=== PATIENT | male | born 1935 | race Caucasian/White ===

== ENCOUNTER 2017-07-17 13:18 | Emergency (ER) | payer OTHER ==
[~2017-07-17] VITALS: Ht 172.7 cm; Wt 81.6 kg
[2017-07-17] MEDS ORDERED: SODIUM CHLORIDE 0.9% 1,000 ML IV ONE (13:36)
[2017-07-17 15:07] LABS: Basophils # (auto) 0.1 uL; Basophils % (auto) 0.8 % (0.0-2.0); Eosinophils # (auto) 0.1 uL; Eosinophils % (auto) 1.7 % (0.0-7.0); Hematocrit 45.8 % (41.0-53.0); Hemoglobin 15.4 g/dL (13.5-17.5); Lymphocytes % (auto) 23.5 % (10.0-50.0); Mean Corpuscular Hemoglobin 31.4 pg (28.0-32.0); Mean Corpuscular Hgb Conc. 33.6 g/dL (32.0-36.0); Mean Corpuscular Volume 93.4 fL (80.0-100.0); Monocytes % (auto) 11.8 % (0.0-12.0); Neutrophils # (auto) 5.2 uL; Neutrophils % (auto) 62.2 % (37.0-80.0); Nucleated Red Blood Cells % 0.1 %; Platelet Count (auto) 192 10^3/uL (140-450); Red Cell Distribution Width 12.7 % (11.8-14.3); White Blood Cell 8.4 10^3/uL (4.4-10.8)
[2017-07-17 15:10] LABS: INR 1.15 (0.9-1.15); Partial Thromboplastin Time 40.4 sec (22.64-33.71); Prothrombin Time 12.5 sec (9.37-12.3)
[2017-07-17 15:12] LABS: Albumin 3.4 g/dL (3.4-5.0); BUN/Creatinine Ratio 17.1; Bilirubin, Total 0.3 mg/dL (0.2-1.0); Calcium 8.5 mg/dL (8.5-10.1); Magnesium 2.6 mg/dL (1.6-2.6); Potassium 4.5 mmol/L (3.5-5.1); Total Protein 6.3 g/dL (6.4-8.2)
[2017-07-17] MEDS ORDERED: cloNIDine HCL 0.1 MG TAB PO ONE (19:30)
[2017-07-17 19:58] VITALS: BP 148/58
== END 2017-07-17 18:24 | disposition short-term general hospital (02) ==
LOC: EDBD 13:18 → ER 13:18
DX: R42 Dizziness and giddiness (principal); I49.5 Sick sinus syndrome; I10 Essential (primary) hypertension; E78.5 Hyperlipidemia, unspecified; I25.2 Old myocardial infarction; M19.90 Unspecified osteoarthritis, unspecified site; Z86.73 Personal history of transient ischemic attack (TIA), and cerebral infarction without residual deficits
CPT/HCPCS: 36415; 70450; 71045; 80053; 83735; 84484; 85025; 85610; 85730; 93005; 99291

== ENCOUNTER 2018-08-22 14:36 | Emergency (ER) | payer OTHER ==
[~2018-08-22] VITALS: Ht 177.8 cm; Wt 81.6 kg
[2018-08-22 15:43] LABS: Hemoglobin 14.6 g/dL (13.5-17.5); Mean Corpuscular Hgb Conc. 33.5 g/dL (32.0-36.0)
[2018-08-22 15:56] LABS: Albumin 3.4 g/dL (3.4-5.0); Calcium 8.4 mg/dL (8.5-10.1); Magnesium 2.2 mg/dL (1.6-2.6)
[2018-08-22 15:57] LABS: Basophils # (auto) 0 uL; Basophils % (auto) 0.5 % (0.0-2.0); Eosinophils # (auto) 0.1 uL; Eosinophils % (auto) 1.1 % (0.0-7.0); Hematocrit 43.7 % (41.0-53.0); Lymphocytes # (auto) 1.5 uL; Mean Corpuscular Hemoglobin 32.3 pg (28.0-32.0); Mean Corpuscular Volume 96.3 fL (80.0-100.0); Monocytes # (auto) 0.6 uL; Neutrophils # (auto) 4.5 uL; Neutrophils % (auto) 66.4 % (37.0-80.0); Nucleated Red Blood Cells % 0.1 %; Platelet Count (auto) 181 10^3/uL (140-450); Red Blood Cells 4.54 10^6/uL (4.5-5.90); White Blood Cell 6.7 10^3/uL (4.4-10.8)
[2018-08-22 16:02] LABS: BUN/Creatinine Ratio 21.8; Bilirubin, Total 0.2 mg/dL (0.2-1.0); Total Protein 6.2 g/dL (6.4-8.2)
[2018-08-22 17:30] LABS: INR 1.27 (0.9-1.15); Partial Thromboplastin Time 45.7 sec (23.78-33.04); Prothrombin Time 13.4 sec (9.27-12.13)
[2018-08-22] MEDS ORDERED: cloNIDine HCL 0.1 MG TAB PO ONE (20:45)
[2018-08-22 21:49] VITALS: BP 141/62
== END 2018-08-22 21:57 | disposition short-term general hospital (02) ==
LOC: EDBD 14:36 → ER 14:39
DX: I11.0 Hypertensive heart disease with heart failure (principal); I50.42 Chronic combined systolic (congestive) and diastolic (congestive) heart failure; M19.90 Unspecified osteoarthritis, unspecified site; I25.10 Atherosclerotic heart disease of native coronary artery without angina pectoris; E78.5 Hyperlipidemia, unspecified; I25.2 Old myocardial infarction; F17.290 Nicotine dependence, other tobacco product, uncomplicated; Z88.8 Allergy status to other drugs, medicaments and biological substances; Z98.61 Coronary angioplasty status
CPT/HCPCS: 36415; 71045; 80053; 83735; 83880; 84443; 84484; 85025; 85610; 85730; 93005; 94761; 99291

== ENCOUNTER → 2021-02-18 | Emergency (ER) | payer OTHER ==
[~2021-02-18] VITALS: Ht 175.3 cm; Wt 77.1 kg
[2021-02-18 16:51] VITALS: BP 135/88
[2021-02-18 17:49] LABS: Basophils # (auto) 0.1 10 ^3/uL (0-0.2); Basophils % (auto) 0.6 % (0.0-2.0); Eosinophils # (auto) 0.1 10 ^3/uL (0-0.8); Eosinophils % (auto) 0.7 % (0.0-7.0); Hematocrit 47.2 % (41.0-53.0); Hemoglobin 15.9 g/dL (13.5-17.5); Mean Corpuscular Hemoglobin 31.4 pg (28.0-32.0); Mean Corpuscular Hgb Conc. 33.7 g/dL (32.0-36.0); Mean Corpuscular Volume 93.3 fL (80.0-100.0); Monocytes # (auto) 0.9 10 ^3/uL (0-1.3); Monocytes % (auto) 9.6 % (0.0-12.0); Neutrophils % (auto) 67.1 % (37.0-80.0); Red Blood Cells 5.06 10^6/uL (4.5-5.90); Red Cell Distribution Width 12.8 % (11.8-14.3)
[2021-02-18 18:06] LABS: Albumin 3.7 g/dL (3.4-5.0); BUN/Creatinine Ratio 20.3; Calcium 9.3 mg/dL (8.5-10.1); Potassium 4.5 mmol/L (3.5-5.1)
[2021-02-18 18:10] LABS: INR 1.04 (0.9-1.15)
[2021-02-18 18:15] LABS: Bilirubin, Total 0.3 mg/dL (0.2-1.0); Total Protein 6.8 g/dL (6.4-8.2)
[2021-02-18 18:59] LABS: Magnesium 2.6 mg/dL (1.6-2.6)
== END | disposition left against medical advice (07) ==
LOC: ER 16:46
DX: R42 Dizziness and giddiness (principal); R77.8 Other specified abnormalities of plasma proteins; F17.200 Nicotine dependence, unspecified, uncomplicated; E78.5 Hyperlipidemia, unspecified; I10 Essential (primary) hypertension; I25.2 Old myocardial infarction
CPT/HCPCS: 36415; 70450; 71045; 80053; 83735; 84484; 85025; 85610; 85730; 93005

== ENCOUNTER 2022-02-22 19:03 | Emergency (ER) | payer OTHER ==
[~2022-02-22] VITALS: Ht 177.8 cm; Wt 84.1 kg
[2022-02-22] MEDS ORDERED: hydrALAZINE HCL 20 MG/ML VL IV ONE ×2 (19:30→23:00)
[2022-02-22] MEDS ORDERED: DABI1CAP PO (20:58)
[2022-02-22] MEDS ORDERED: HYDR-4072 PO (20:58)
[2022-02-22] MEDS ORDERED: CEPH500C PO (20:58)
[2022-02-22] MEDS ORDERED: ISOS1TAB28 PO (20:58)
[2022-02-22 21:21] LABS: Basophils # (auto) 0 10 ^3/uL (0-0.2); Basophils % (auto) 0.3 % (0.0-2.0); Eosinophils # (auto) 0.2 10 ^3/uL (0-0.8); Hematocrit 41.5 % (41.0-53.0); Hemoglobin 13.7 g/dL (13.5-17.5); Lymphocytes # (auto) 1.6 10 ^3/uL (0.4-5.4); Lymphocytes % (auto) 24.8 % (10.0-50.0); Mean Corpuscular Hemoglobin 30.5 pg (28.0-32.0); Mean Corpuscular Volume 92.4 fL (80.0-100.0); Monocytes # (auto) 0.7 10 ^3/uL (0-1.3); Monocytes % (auto) 10.4 % (0.0-12.0); Neutrophils % (auto) 61.5 % (37.0-80.0); Nucleated Red Blood Cells % 0.1 %; Red Blood Cells 4.49 10^6/uL (4.5-5.90); Red Cell Distribution Width 12.5 % (11.8-14.3); White Blood Cell 6.5 10^3/uL (4.4-10.8)
[2022-02-22 21:43] LABS: Albumin 3.2 g/dL (3.4-5.0); Calcium 8.9 mg/dL (8.5-10.1); Magnesium 2.5 mg/dL (1.6-2.6); Potassium 4.1 mmol/L (3.5-5.1)
[2022-02-22 21:47] LABS: BUN/Creatinine Ratio 11.6; Bilirubin, Total 0.5 mg/dL (0.2-1.0); Total Protein 6.5 g/dL (6.4-8.2)
[2022-02-22 22:52] LABS: Urine Bacteria NONE SEEN /hpf (None Seen); Urine Blood Negative /uL (Negative); Urine Mucus FEW (None Seen); Urine Specific Gravity 1.017 (1.001-1.035); Urine WBC <1 /hpf (0 - 3)
[2022-02-23 03:58] VITALS: BP 162/98
== END 2022-02-23 03:58 | disposition home or self-care (01) ==
LOC: EDBD 19:03 → ER 19:11
DX: I16.0 Hypertensive urgency (principal); R07.89 Other chest pain; I25.2 Old myocardial infarction; I25.10 Atherosclerotic heart disease of native coronary artery without angina pectoris; E78.5 Hyperlipidemia, unspecified; F17.210 Nicotine dependence, cigarettes, uncomplicated; Z86.73 Personal history of transient ischemic attack (TIA), and cerebral infarction without residual deficits; Z79.899 Other long term (current) drug therapy; Z88.8 Allergy status to other drugs, medicaments and biological substances
CPT/HCPCS: 36415; 70450; 71045; 80053; 81001; 83735; 84484; 85025; 93005; 96374; 96376; 99285; J0360

== ENCOUNTER 2022-07-07 12:41 | Inpatient (IN) | payer OTHER ==
[~2022-07-07] VITALS: Ht 177.8 cm; Wt 83.2 kg
[~2022-07-07 12:41] MED LIST: CEPH500C PO; DABI1CAP PO; HYDR-4072 PO; ISOS1TAB28 PO
[2022-07-07 13:23] LABS: Basophils # (auto) 0.1 10 ^3/uL (0-0.2); Basophils % (auto) 0.7 % (0.0-2.0); Eosinophils # (auto) 0.2 10 ^3/uL (0-0.8); Eosinophils % (auto) 2.1 % (0.0-7.0); Hematocrit 44.6 % (41.0-53.0); Hemoglobin 15.1 g/dL (13.5-17.5); Lymphocytes % (auto) 26.7 % (10.0-50.0); Mean Corpuscular Hemoglobin 31.2 pg (28.0-32.0); Mean Corpuscular Hgb Conc. 33.9 g/dL (32.0-36.0); Monocytes # (auto) 0.6 10 ^3/uL (0-1.3); Monocytes % (auto) 7.2 % (0.0-12.0); Neutrophils # (auto) 4.9 10 ^3/uL (1.6-8.6); Neutrophils % (auto) 63.3 % (37.0-80.0); Nucleated Red Blood Cells % 0.1 %; Red Blood Cells 4.85 10^6/uL (4.5-5.90); Red Cell Distribution Width 12.2 % (11.8-14.3); White Blood Cell 7.7 10^3/uL (4.4-10.8)
[2022-07-07] MEDS ORDERED: LABETALOL HCL 5 MG/ML 4ML SYRINGE IV ONE ×2 (13:30→16:45)
[2022-07-07 14:28] LABS: Chloride 105 mmol/L (98-107); Potassium 4.5 mmol/L (3.5-5.1); Sodium 140 mmol/L (136-145)
[2022-07-07 14:29] LABS: Alanine Aminotransferase 21 U/L (16-61); Alkaline Phosphatase 37 U/L (45-117); Anion Gap 5 (5-15); Aspartate Aminotransferase 22 U/L (15-37); Blood Urea Nitrogen 21 mg/dL (7-18); Calcium 9.1 mg/dL (8.5-10.1); Carbon Dioxide 30 mmol/L (21-32); GFR African American 91 mL/min; GFR Non-African American 75 mL/min; Glucose 98 mg/dL (74-106)
[2022-07-07 14:30] LABS: Bilirubin, Total 0.4 mg/dL (0.2-1.0); Total Protein 6.7 g/dL (6.4-8.2)
[2022-07-07 15:35] LABS: Urine Bacteria NONE SEEN /hpf (None Seen); Urine WBC 1 /hpf (0 - 3)
[2022-07-07 15:41] LABS: Urine Specific Gravity 1.009 (1.001-1.035)
[2022-07-07 15:42] LABS: Urine Blood Negative /uL (Negative)
[2022-07-07] MEDS ORDERED: LORazepam 2MG/ML-1ML VIAL IV PRN ×2 (19:30→20:30)
[2022-07-07 19:44] LABS: INR 1.01 (0.9-1.15)
[2022-07-07 19:49] LABS: Magnesium 2.6 mg/dL (1.6-2.6)
[2022-07-07 21:42] LABS: Alcohol, Urine < 3.0 mg/dL (0-10); Amphetamine Screen, Urine NEGATIVE (NEGATIVE); Barbiturate Scree,Urine NEGATIVE (NEGATIVE); Benzodiazephine Screen, Urine NEGATIVE (NEGATIVE); Cannabinoid Screen, Urine NEGATIVE (NEGATIVE); Cocaine Screen, Urine NEGATIVE (NEGATIVE); Opiate Scree,Urine POSITIVE (NEGATIVE); Phencyclidine Screen, Urine NEGATIVE (NEGATIVE)
[2022-07-07] MEDS: DABIGATRAN 75 MG CAP PO SCH (22:27)
[2022-07-07 22:46] LABS: Cholesterol 156 mg/dL (< 200); HDL Cholesterol 59 mg/dL (40-59); LDL Cholesterol 91 mg/dL (< 100); Triglycerides 90 mg/dL (< 150)
[2022-07-08 00:23] LABS: Folate (Folic Acid) > 24.00 ng/mL (5.38-24)
[2022-07-08] MEDS: HYDROcodone-ACET 10/325MG TAB PO PRN ×2 (01:25→22:23)
[2022-07-08] MEDS: cloNIDine HCL 0.1 MG TAB PO SCH ×3 (07:45→22:23)
[2022-07-08] MEDS: ISOSORBIDE MONONITRATE ER 60 MG TAB PO SCH (11:07)
[2022-07-08] MEDS: PANTOPRAZOLE 40 MG/10 ML VIAL INJ IV SCH (11:30)
[2022-07-08] MEDS: DABIGATRAN 75 MG CAP PO SCH ×2 (11:30→22:00)
[2022-07-08] MEDS: FOLIC ACID 1 MG, MULTIPLE VITAMIN 10 ML, MAGNESIUM SULF SDV 50% 8 MEQ, THIAMINE INJ 100... INJ SCH ×5 (13:19)
[2022-07-08 19:13] VITALS: BP 179/77
[2022-07-08] MEDS ORDERED: NITR0.4S29 SL (19:56)
[2022-07-08] MEDS ORDERED: ASPI1TAB20 PO (19:56)
[2022-07-08] MEDS ORDERED: ALEN70TA74 PO (19:56)
[2022-07-08] MEDS ORDERED: DABI150C5 PO (19:56)
[2022-07-08] MEDS ORDERED: NITR1SPR TL (19:56)
[2022-07-08] MEDS ORDERED: ISOS1TAB28 PO (19:56)
[2022-07-08] MEDS ORDERED: ACET-1304 PO (19:56)
[2022-07-08] MEDS ORDERED: ROSU10TA16 PO (19:56)
[2022-07-08] MEDS ORDERED: HYDR-4798 PO (19:56)
[2022-07-08] MEDS ORDERED: MULT-980 PO (19:56)
[2022-07-08 22:00] VITALS: BP 177/83
[2022-07-09 05:00] VITALS: BP 173/77
[2022-07-09 06:07] LABS: RPR Non Reactive (Non Reactive)
[2022-07-09] MEDS: cloNIDine HCL 0.1 MG TAB PO SCH ×3 (07:19→21:27)
[2022-07-09 08:00] VITALS: BP 118/64
[2022-07-09 09:00] VITALS: BP 171/75
[2022-07-09] MEDS ORDERED: hydrALAZINE HCL 20 MG/ML VL IV PRN (09:00)
[2022-07-09] MEDS: PANTOPRAZOLE 40 MG/10 ML VIAL INJ IV SCH (09:54)
[2022-07-09] MEDS: ISOSORBIDE MONONITRATE ER 60 MG TAB PO SCH (09:54)
[2022-07-09] MEDS: DABIGATRAN 75 MG CAP PO SCH (09:55)
[2022-07-09] MEDS ORDERED: amLODIPine BESYLATE 5 MG TAB PO SCH (10:00)
[2022-07-09 12:59] LABS: BUN/Creatinine Ratio 19.3; Calcium 8.4 mg/dL (8.5-10.1); Potassium 3.7 mmol/L (3.5-5.1)
[2022-07-09 13:00] VITALS: BP 122/65
[2022-07-09] MEDS: FOLIC ACID 1 MG, MULTIPLE VITAMIN 10 ML, MAGNESIUM SULF SDV 50% 8 MEQ, THIAMINE INJ 100... INJ SCH ×5 (13:12)
[2022-07-09] MEDS ORDERED: IOHEXOL 350 MG/ML 100ML IJ ONE (13:55)
[2022-07-09 16:48] VITALS: BP 125/75
[2022-07-09] MEDS: ENOXAPARIN SOD 80 MG/0.8ML SYRINGE SC SCH (21:28)
[2022-07-09 22:00] VITALS: BP 131/79
[2022-07-09] MEDS: HYDROcodone-ACET 10/325MG TAB PO PRN (23:24)
[2022-07-10 05:00] VITALS: BP 149/53
[2022-07-10] MEDS: cloNIDine HCL 0.1 MG TAB PO SCH ×2 (06:01→14:00)
[2022-07-10 08:00] VITALS: BP 122/52
[2022-07-10 09:00] VITALS: BP 122/52
[2022-07-10] MEDS ORDERED: ISOSORBIDE MONONITRATE ER 60 MG TAB PO SCH (10:00)
[2022-07-10] MEDS ORDERED: amLODIPine BESYLATE 5 MG TAB PO SCH (10:00)
[2022-07-10] MEDS: PANTOPRAZOLE 40 MG/10 ML VIAL INJ IV SCH (10:19)
[2022-07-10] MEDS: ENOXAPARIN SOD 80 MG/0.8ML SYRINGE SC SCH (10:20)
[2022-07-10] MEDS ORDERED: AMLO-496 PO (12:00)
[2022-07-10 13:00] VITALS: BP 121/59
[2022-07-10] MEDS: FOLIC ACID 1 MG, MULTIPLE VITAMIN 10 ML, MAGNESIUM SULF SDV 50% 8 MEQ, THIAMINE INJ 100... INJ SCH ×5 (13:10)
[2022-07-10 14:38] VITALS: BP 108/52
== END 2022-07-10 17:00 | disposition home or self-care (01) | DRG 77 ==
LOC: ER 12:41 → TELE 18:51 → TELE-EAST 07-08 18:04
PROVIDERS: ADMIT Nurse Practitioner Family; ATTEND Internal Medicine Geriatric Medicine
DX: I67.4 Hypertensive encephalopathy (principal); I67.83 Posterior reversible encephalopathy syndrome; F10.139 Alcohol abuse with withdrawal, unspecified; I16.1 Hypertensive emergency; I45.2 Bifascicular block; E78.5 Hyperlipidemia, unspecified; F01.50 Vascular dementia, unspecified severity, without behavioral disturbance, psychotic disturbance, mood disturbance, and anxiety; Z20.822 Contact with and (suspected) exposure to COVID-19; I11.9 Hypertensive heart disease without heart failure; M81.0 Age-related osteoporosis without current pathological fracture; F17.200 Nicotine dependence, unspecified, uncomplicated; Y90.9 Presence of alcohol in blood, level not specified; I25.10 Atherosclerotic heart disease of native coronary artery without angina pectoris; I44.0 Atrioventricular block, first degree; I48.91 Unspecified atrial fibrillation; I65.23 Occlusion and stenosis of bilateral carotid arteries; Z95.5 Presence of coronary angioplasty implant and graft; Z91.81 History of falling; Z88.8 Allergy status to other drugs, medicaments and biological substances; Z86.79 Personal history of other diseases of the circulatory system; Z86.73 Personal history of transient ischemic attack (TIA), and cerebral infarction without residual deficits; Z82.3 Family history of stroke; Z85.828 Personal history of other malignant neoplasm of skin; Z79.01 Long term (current) use of anticoagulants
CPT/HCPCS: 36415; 70450; 70498; 70551; 71045; 80048; 80053; 80061; 80307; 80320; 81001; 82140; 82607; 82746; 83090; 83735; 84100; 84439; 84443; 84484; 85025; 85610; 85652; 86592; 87426; 93005; 93306; 93886; 95819; 96374; 96376; 97163; 99291; C9113; G0378; J3490

== ENCOUNTER 2022-10-12 22:26 | Emergency (ER) | payer OTHER ==
[~2022-10-12] VITALS: Ht 177.8 cm; Wt 81.8 kg
[~2022-10-12 22:26] MED LIST changes: +ACET-1304 PO; +ALEN70TA74 PO; +AMLO-496 PO; +ASPI1TAB20 PO; +DABI150C5 PO; -DABI1CAP PO; -HYDR-4072 PO; +HYDR-4798 PO; +MULT-980 PO; +NITR0.4S29 SL; +NITR1SPR TL; +ROSU10TA16 PO
[2022-10-12] MEDS ORDERED: amLODIPine BESYLATE 5 MG TAB PO ONE (23:00)
[2022-10-12 23:38] LABS: Basophils # (auto) 0 10 ^3/uL (0-0.2); Basophils % (auto) 0.6 % (0.0-2.0); Eosinophils # (auto) 0.1 10 ^3/uL (0-0.8); Eosinophils % (auto) 1.4 % (0.0-7.0); Hematocrit 40.7 % (41.0-53.0); Hemoglobin 13.8 g/dL (13.5-17.5); Lymphocytes % (auto) 30.6 % (10.0-50.0); Mean Corpuscular Hemoglobin 30.6 pg (28.0-32.0); Mean Corpuscular Volume 90.2 fL (80.0-100.0); Monocytes # (auto) 0.6 10 ^3/uL (0-1.3); Monocytes % (auto) 9.6 % (0.0-12.0); Neutrophils # (auto) 3.7 10 ^3/uL (1.6-8.6); Neutrophils % (auto) 57.8 % (37.0-80.0); Nucleated Red Blood Cells % 0.1 %; Red Blood Cells 4.51 10^6/uL (4.5-5.90); Red Cell Distribution Width 12.6 % (11.8-14.3); White Blood Cell 6.4 10^3/uL (4.4-10.8)
[2022-10-12 23:55] LABS: Albumin 3.6 g/dL (3.4-5.0); Calcium 9.4 mg/dL (8.5-10.1); Potassium 3.9 mmol/L (3.5-5.1)
[2022-10-12 23:57] LABS: BUN/Creatinine Ratio 24.7 (10.0-20.0)
[2022-10-13] LABS: Bilirubin, Total 0.2 mg/dL (0.2-1.0); Total Protein 6.7 g/dL (6.4-8.2)
[2022-10-13] MEDS ORDERED: hydrALAZINE HCL 20 MG/ML VL IV ONE (01:30)
[2022-10-13 02:15] LABS: Urine WBC None Seen /hpf (0 - 3)
[2022-10-13 02:24] LABS: Urine Bacteria NONE SEEN /hpf (None Seen); Urine Blood TRACE /uL (Negative); Urine Specific Gravity 1.008 (1.001-1.035)
[2022-10-13 02:30] VITALS: BP 161/46
== END 2022-10-13 02:43 | disposition home or self-care (01) ==
LOC: ER 22:26
DX: I10 Essential (primary) hypertension (principal); R51.9 Headache, unspecified; E78.5 Hyperlipidemia, unspecified; F17.200 Nicotine dependence, unspecified, uncomplicated; Z86.73 Personal history of transient ischemic attack (TIA), and cerebral infarction without residual deficits; Z88.8 Allergy status to other drugs, medicaments and biological substances
CPT/HCPCS: 36415; 70450; 71045; 80053; 81001; 84484; 85025; 93005; 96374; 99285; J0360

== ENCOUNTER 2022-10-15 21:50 | Emergency (ER) | payer OTHER ==
[~2022-10-15] VITALS: Ht 172.7 cm; Wt 83.8 kg
[2022-10-15 23:43] LABS: Basophils # (auto) 0.1 10 ^3/uL (0-0.2); Basophils % (auto) 0.9 % (0.0-2.0); Eosinophils # (auto) 0.1 10 ^3/uL (0-0.8); Hematocrit 40.9 % (41.0-53.0); Lymphocytes # (auto) 1.9 10 ^3/uL (0.4-5.4); Lymphocytes % (auto) 28.2 % (10.0-50.0); Mean Corpuscular Hemoglobin 31.1 pg (28.0-32.0); Mean Corpuscular Hgb Conc. 34.3 g/dL (32.0-36.0); Mean Corpuscular Volume 90.9 fL (80.0-100.0); Monocytes # (auto) 0.7 10 ^3/uL (0-1.3); Monocytes % (auto) 10.2 % (0.0-12.0); Neutrophils # (auto) 4.1 10 ^3/uL (1.6-8.6); Neutrophils % (auto) 59.7 % (37.0-80.0); Nucleated Red Blood Cells % 0.1 %; Red Cell Distribution Width 12.7 % (11.8-14.3); White Blood Cell 6.8 10^3/uL (4.4-10.8)
[2022-10-16 00:03] LABS: BUN/Creatinine Ratio 22.7 (10.0-20.0); Potassium 4.4 mmol/L (3.5-5.1)
[2022-10-16 00:04] LABS: Albumin 3.7 g/dL (3.4-5.0); Calcium 8.9 mg/dL (8.5-10.1); Magnesium 2.3 mg/dL (1.6-2.6)
[2022-10-16 00:06] LABS: Bilirubin, Total 0.3 mg/dL (0.2-1.0); Total Protein 6.4 g/dL (6.4-8.2)
[2022-10-16 00:17] LABS: Partial Thromboplastin Time 38.1 sec (24.6-33.4)
[2022-10-16] MEDS ORDERED: cloNIDine HCL 0.1 MG TAB PO ONE (03:30)
[2022-10-16] MEDS ORDERED: HYDROcodone-ACET 10/325MG TAB PO ONE (04:00)
[2022-10-16 05:48] VITALS: BP 126/78
== END 2022-10-16 05:51 | disposition home or self-care (01) ==
LOC: ER 21:50
DX: I16.0 Hypertensive urgency (principal); E86.0 Dehydration; R73.9 Hyperglycemia, unspecified; I25.2 Old myocardial infarction; I25.10 Atherosclerotic heart disease of native coronary artery without angina pectoris; E78.5 Hyperlipidemia, unspecified; F17.210 Nicotine dependence, cigarettes, uncomplicated; Z86.73 Personal history of transient ischemic attack (TIA), and cerebral infarction without residual deficits; Z79.82 Long term (current) use of aspirin; Z79.899 Other long term (current) drug therapy; Z88.8 Allergy status to other drugs, medicaments and biological substances
CPT/HCPCS: 36415; 80053; 83735; 83880; 84484; 85025; 85610; 85730; 93005

== ENCOUNTER 2023-08-16 17:03 | Inpatient (IN) | payer OTHER ==
[~2023-08-16] VITALS: Ht 175.3 cm; Wt 82.7 kg
[~2023-08-16 17:03] MED LIST changes: -AMLO-496 PO; +AMLO1TAB23 PO
[2023-08-16 17:59] VITALS: PULSE 94; RESP 16; O2SAT 94
[2023-08-16 18:54] LABS: Basophils # (auto) 0.1 10 ^3/uL (0-0.2); Basophils % (auto) 0.3 % (0.0-2.0); Eosinophils # (auto) 0 10 ^3/uL (0-0.8); Eosinophils % (auto) 0.1 % (0.0-7.0); Hematocrit 32.8 % (41.0-53.0); Hemoglobin 10.9 g/dL (13.5-17.5); Lymphocytes % (auto) 9.2 % (10.0-50.0); Mean Corpuscular Hemoglobin 30.2 pg (28.0-32.0); Mean Corpuscular Hgb Conc. 33.1 g/dL (32.0-36.0); Mean Corpuscular Volume 91.2 fL (80.0-100.0); Monocytes # (auto) 1.7 10 ^3/uL (0-1.3); Monocytes % (auto) 7.7 % (0.0-12.0); Neutrophils # (auto) 18.2 10 ^3/uL (1.6-8.6); Neutrophils % (auto) 82.7 % (37.0-80.0)
[2023-08-16 19:06] LABS: INR 1.25 (0.9-1.15); Partial Thromboplastin Time 33.3 SEC (24.5-34.5); Prothrombin Time 12.9 sec (9.3-11.8)
[2023-08-16] MEDS: SODIUM CHLORIDE 0.9% 1,000 ML IV ONE (19:15)
[2023-08-16 19:50] VITALS: O2SAT 96
[2023-08-16 20:55] LABS: Alanine Aminotransferase 68 U/L (7-40); Albumin 3.2 g/dL (3.2-4.8); Alkaline Phosphatase 37 U/L (46-116); Aspartate Aminotransferase 77 U/L (13-40); BUN/Creatinine Ratio 25.6 (10.0-20.0); Blood Urea Nitrogen 23 mg/dL (9-23); Chloride 100 mmol/L (98-107); Glucose 137 mg/dL (74-106); Magnesium 2.2 mg/dL (1.6-2.6); Sodium 130 mmol/L (136-145)
[2023-08-16 20:56] LABS: Bilirubin, Total 0.5 mg/dL (0.2-1.0); Total Protein 5.1 g/dL (5.7-8.2)
[2023-08-16] MEDS: cefTRIAXone 1GM/50ML D5W 50 ML IV ONE (20:58)
[2023-08-16 21:00] LABS: Lactic Acid w/Reflex 2.6 mmol/L (0.4-2.0)
[2023-08-16 21:10] LABS: Anion Gap 8 (5-15); Carbon Dioxide 22 mmol/L (20-30)
[2023-08-16 21:20] LABS: Blood Alcohol 6.9 mg/dL (<10)
[2023-08-16 21:30] LABS: Magnesium 2.2 mg/dL (1.6-2.6)
[2023-08-16 22:11] LABS: COVID19 ANTIGEN SOFIA FIA NEGATIVE (NEGATIVE)
[2023-08-17] VITALS (15 sets, daily range): BP systolic 23–141; BP diastolic 10–117; PULSE 30–114; RESP 12–27; TEMP 97.4; O2SAT 69–100
[2023-08-17] MEDS ORDERED: MORPHINE SULFATE INJ 2 MG/ml SYRG IV PRN ×2 (04:00→04:45)
[2023-08-17] MEDS ORDERED: ACETAMINOPHEN 325 MG TAB PO PRN ×2 (04:00→04:45)
[2023-08-17] MEDS ORDERED: ONDANSETRON HCL 4 MG/2 ML VIAL IV PRN ×2 (04:00→04:45)
[2023-08-17] MEDS ORDERED: NITROGLYCERIN 0.4 MG SL TAB SL PRN ×2 (04:00→04:45)
[2023-08-17] MEDS: ALBUMIN 5% 250 ML IV ONE ×2 (04:55→05:02)
[2023-08-17] MEDS ORDERED: cefTRIAXone 1GM/50ML D5W 50 ML IV SCH (09:00)
[2023-08-17] MEDS ORDERED: AZITHROMYCIN 500MG/ 250ML 250 ML IV SCH (10:00)
[2023-08-17] MEDS: cefTRIAXone 1GM/50ML D5W 50 ML IV SCH (10:11)
[2023-08-17] MEDS: AZITHROMYCIN 500MG/ 250ML 250 ML IV SCH (11:12)
[2023-08-17] MEDS: ENOXAPARIN SOD 40 MG/0.4 ML SYRINGE SC SCH (11:12)
[2023-08-17 12:45] LABS: Urine Bacteria NONE SEEN /hpf (None Seen); Urine Blood Negative /uL (Negative); Urine Clarity Clear (Clear); Urine Color Yellow (Yellow); Urine Mucus FEW (None Seen); Urine Protein, UAD TRACE (Negative); Urine Specific Gravity 1.023 (1.001-1.035); Urine Urobilinogen Normal (Negative); Urine WBC 1 /hpf (0 - 3); Urine pH 5.5 (5.0-8.0)
[2023-08-17] MEDS: SODIUM CHLORIDE 0.9% 1,000 ML IV ONE (13:20)
[2023-08-17] MEDS ORDERED: HYDROcodone-ACET 10/325MG TAB PO PRN (14:15)
[2023-08-17] MEDS ORDERED: VANCOMYCIN PER PHARMACY 0 MG IV SCH (14:15)
[2023-08-17 14:19] LABS: Base Excess -12.3 mmol/L (-2.0-2.0)
[2023-08-17] MEDS: NOREPINEPHRINE 8 MG/250ML KIT 250 ML IV SCH (14:34)
[2023-08-17] MEDS: ETOMIDATE (2MG/ML) 20ML VIAL IV ONE ×2 (14:46→15:02)
[2023-08-17] MEDS: SUCCINYLCHOLINE CHLORIDE 20 MG/ML 10ML VIAL IV ONE ×2 (14:47→15:02)
[2023-08-17] MEDS: SODIUM CHLORIDE 0.9% 500 ML IV ONE (15:15)
[2023-08-17] MEDS: MIDAZOLAM DRIP 50 mg/50mL 50 ML IV SCH (15:51)
[2023-08-17] MEDS: fentaNYL Drip 2500mCg/250mlNS 250 ML IV SCH (15:51)
[2023-08-17] MEDS ORDERED: CEFEPIME 2GM/50ML NS 50 ML IV SCH ×2 (16:00→22:00)
[2023-08-17 16:24] LABS: Erythrocyte Sedimentation Rate 11 mm/hr (0-20)
[2023-08-17 16:30] LABS: Base Excess -3.5 mmol/L (-2.0-2.0)
[2023-08-17] MEDS: VANCOMYCIN 1GM/200ML 200 ML IV ONE (16:30)
[2023-08-17] MEDS: SODIUM BICARB 8.4% 50Meq/50ml SYR INJ ONE (16:31)
[2023-08-17] MEDS: EPINEPHrine HCL 250 ML IV ONE (16:58)
[2023-08-17] MEDS: EPINEPHrine HCL 250 ML IV SCH (17:00)
[2023-08-17] MEDS: VASOPRESSIN 20 UNITS in SODIUM CHL 0.9% 99 ML IV SCH (17:30)
[2023-08-17] MEDS: DOPamine 1600MCG/ML D5W 250 ML IV SCH (17:30)
[2023-08-17] MEDS: PHENYLEPHRINE IV 250 ML IV SCH (17:35)
[2023-08-17] MEDS: DOPamine 1600MCG/ML D5W 250 ML IV ONE (17:39)
[2023-08-17 17:41] LABS: Hematocrit 16.7 % (41.0-53.0); Mean Corpuscular Hemoglobin 30.1 pg (28.0-32.0); Mean Corpuscular Hgb Conc. 30.6 g/dL (32.0-36.0); Mean Corpuscular Volume 98.2 fL (80.0-100.0); Red Cell Distribution Width 13.7 % (11.8-14.3); White Blood Cell 20.4 10^3/uL (4.4-10.8)
[2023-08-17 17:45] LABS: Hemoglobin 5.1 g/dL (13.5-17.5)
[2023-08-17 17:46] LABS: Basophils % (manual) 0 (0.0-2.0); Blast Cells 0; Eosinophils % (manual) 0 (0-7); Metamyelocytes % 0; Myelocytes % 0; Promyelocytes % 0; Reactive Lymphocytes 0
[2023-08-17 18:00] LABS: Chloride 105 mmol/L (98-107); Potassium 5.2 mmol/L (3.5-5.1); Sodium 139 mmol/L (136-145)
[2023-08-17] MEDS ORDERED: PANTOPRAZOLE 40mg/50ML NS AE 50 ML IV SCH (18:00)
[2023-08-17] MEDS ORDERED: SODIUM BICARB 50mEq/50ml Vial 150 ML in D5W 5% 1,000 ML IV SCH (18:00)
[2023-08-17] MEDS ORDERED: IPRATROPIUM BROM 0.5 MG/2.5ML INH SOL NEB SCH (18:00)
[2023-08-17] MEDS ORDERED: ALBUMIN 5% 250 ML IV ONE (18:00)
[2023-08-17] MEDS ORDERED: ALBUTEROL SULF 2.5 MG/0.5ML(0.5%) NEB SOLN NEB SCH (18:00)
[2023-08-17 18:01] LABS: Anion Gap 22 (5-15)
[2023-08-17] MEDS: SODIUM BICARB 8.4% 50Meq/50ml SYR Vial IV ONE (18:01)
[2023-08-17 18:02] LABS: Calcium 8.7 mg/dL (8.5-10.1)
[2023-08-17 18:06] LABS: BUN/Creatinine Ratio 35.3 (10.0-20.0); Glucose 159 mg/dL (74-106)
[2023-08-17 18:08] LABS: Blood Urea Nitrogen 48 mg/dL (9-23); Carbon Dioxide 12 mmol/L (20-30)
[2023-08-17] MEDS: PHENYLEPHRINE IV 250 ML IV ONE (18:08)
[2023-08-17] MEDS: MORPHINE SULFATE INJ 2 MG/ml SYRG IV PRN (19:07)
[2023-08-17] MEDS: LORazepam 2MG/ML-1ML VIAL IV PRN (19:07)
[2023-08-17 19:49] LABS: Band Neutrophils % (manual) 5; Lymphocytes % (manual) 15 (10.0-50.0); Monocytes % (manual) 6 (0-12)
[2023-08-17 19:50] LABS: Platelet Estimate Adequate
[2023-08-17] MEDS ORDERED: HYDROCORTISONE SOD SUCC 100 MG/2ML INJ VIAL IV SCH (22:00)
[2023-08-17] MEDS ORDERED: PANTOPRAZOLE 40 MG/10 ML VIAL INJ IV SCH (22:00)
== END 2023-08-17 19:38 | DRG 871 ==
LOC: ER 17:03 → EDBD 17:03 → EDUNIT# 17:03 → TELE 08-17 03:54 → ER 08-17 04:05 → TELE 08-17 04:05 → ICU WEST 08-17 16:40
PROVIDERS: ADMIT Nurse Practitioner; ATTEND Nurse Practitioner Acute Care
PROC: 0BH17EZ Insertion of Endotracheal Airway into Trachea, Via Natural or Artificial Opening (ICD-10-PCS; principal; 2023-08-17)
PROC: 5A1935Z Respiratory Ventilation, Less than 24 Consecutive Hours (ICD-10-PCS; 2023-08-17)
PROC: 05HM33Z Insertion of Infusion Device into Right Internal Jugular Vein, Percutaneous Approach (ICD-10-PCS; 2023-08-17)
PROC: B543ZZA Ultrasonography of Right Jugular Veins, Guidance (ICD-10-PCS; 2023-08-17)
PROC: 06HY33Z Insertion of Infusion Device into Lower Vein, Percutaneous Approach (ICD-10-PCS; 2023-08-17)
PROC: 04HY32Z Insertion of Monitoring Device into Lower Artery, Percutaneous Approach (ICD-10-PCS; 2023-08-17)
PROC: 5A12012 Performance of Cardiac Output, Single, Manual (ICD-10-PCS; 2023-08-17)
PROC: 30233N1 Transfusion of Nonautologous Red Blood Cells into Peripheral Vein, Percutaneous Approach (ICD-10-PCS; 2023-08-17)
DX: A41.9 Sepsis, unspecified organism (principal); G93.41 Metabolic encephalopathy; J18.9 Pneumonia, unspecified organism; R65.21 Severe sepsis with septic shock; J96.01 Acute respiratory failure with hypoxia; S06.0XAA Concussion with loss of consciousness status unknown, initial encounter; K92.2 Gastrointestinal hemorrhage, unspecified; I46.9 Cardiac arrest, cause unspecified; I95.1 Orthostatic hypotension; I10 Essential (primary) hypertension; E78.5 Hyperlipidemia, unspecified; I25.10 Atherosclerotic heart disease of native coronary artery without angina pectoris; Z20.822 Contact with and (suspected) exposure to COVID-19; F17.210 Nicotine dependence, cigarettes, uncomplicated; W18.39XA Other fall on same level, initial encounter; Z66 Do not resuscitate; M81.0 Age-related osteoporosis without current pathological fracture; D64.9 Anemia, unspecified; Y95 Nosocomial condition; I48.91 Unspecified atrial fibrillation; R57.8 Other shock; F03.90 Unspecified dementia, unspecified severity, without behavioral disturbance, psychotic disturbance, mood disturbance, and anxiety; Z86.73 Personal history of transient ischemic attack (TIA), and cerebral infarction without residual deficits; Z79.01 Long term (current) use of anticoagulants; Z88.8 Allergy status to other drugs, medicaments and biological substances; I25.2 Old myocardial infarction; Z95.5 Presence of coronary angioplasty implant and graft; Y93.89 Activity, other specified; Y92.89 Other specified places as the place of occurrence of the external cause; Y99.8 Other external cause status; Z85.821 Personal history of Merkel cell carcinoma
CPT/HCPCS: 36415; 36600; 70450; 71045; 72125; 80048; 80053; 80320; 81001; 82805; 82962; 83605; 83735; 83880; 84484; 85007; 85025; 85027; 85610; 85652; 85730; 86141; 86920; 87040; 87081; 87086; 87426; 92950; 93005; 93306; 93886; 94002; G0378; J0171; J0330; J2250